=== PATIENT | male | born 1955 | race Caucasian/White ===

== ENCOUNTER → 2024-03-06 10:23 | Outpatient (CLI) | payer OTHER, SELFPAY ==
--- NOTE | 2024-03-06 10:24 | DI.MRI.S_ITS ---
PROCEDURE: MR PELVIC PROSTATE PROTOCOL INDICATIONS: Elevated PSA TECHNIQUE: Coronal HASTE, axial T1 FSE with fat saturation, 3-plane nonbreath-hold T2 FSE. After the administration of contrast, dynamic axial, delayed axial and coronal VIBE or 2-D FLASH with fat saturation through the pelvis. Diffusion weighted imaging and ADC was performed. COMPARISON: None. FINDINGS: Image quality: Diffusion weighted and dynamic contrast enhanced images are diagnostic. Prostate: Gland size is 3.8 x 5.5 x 4.6 cm; ellipsoid gland volume is 50 mL. Nodular hypertrophy of the majority of the transition zone with some preservation of peripheral zone in the mid gland apex. A small wedge-shaped focus of restricted diffusion in the left posterior transition zone of near the base has morphology suggesting postinflammatory change. This could also represent portion of a BPH nodule. This is seen best on series 24, image 53. PI-RADS two. there are several circumscribed transition zone nodules which demonstrate restricted diffusion and enhancement, most likely false positive Lesion 1: Location: Right paracentral posterior peripheral zone at the mid gland level is a curvilinear area of low ADC signal, series 25, image 12 and series 7, image 11. Size: 0.8 cm. T2W signal: Mildly hypointense DWI signal: Mildly hyperintense ADC signal: Moderately hypointense Enhancement: No Extracapsular extension: No PI-RADS score: Three Genitourinary system: Bladder wall thickness is normal. Distal ureters are non distended. Small bilateral hydroceles. Bowel and peritoneum: No pathologic free pelvic fluid. Inferior colon and small bowel loops are normal in caliber. Extensive sigmoid diverticulosis. Nodes and vessels: No pelvic or inguinal adenopathy by size criteria. Iliac vessels are normal in caliber. Soft tissues: No inguinal hernias. Bones: Marrow demonstrates normal overall signal, without lesions to suggest metastases. IMPRESSION: Mildly enlarged prostate with morphology of BPH. PI-RADS three curvilinear lesion in the right posterior peripheral zone. No PI-RADS four or PI-RADS five lesions. No pelvic lymphadenopathy by size criteria. No aggressive osseous abnormality. Dictated by: Balbina Garland M.D. on 03/06/2024 at 15:13 Approved by: Balbina Garland M.D. on 03/06/2024 at 15:58
== END ==
PROVIDERS: PCP Student in an Organized Health Care Education/Training Program; Referring Provider Urology; Visit Provider Urology
DX: N40.0 Benign prostatic hyperplasia without lower urinary tract symptoms (principal); R97.20 Elevated prostate specific antigen [PSA]; N42.9 Disorder of prostate, unspecified
CPT/HCPCS: 72197; A9579

== ENCOUNTER → 2024-04-22 10:18 | Outpatient (CLI) | payer OTHER, SELFPAY ==
--- NOTE | 2024-04-22 10:19 | DI.MRI.S_ITS ---
PROCEDURE: MR SHOULDER LT WO CON INDICATIONS: ARTHROPATHIES LT SHOULDER TECHNIQUE: Noncontrast oblique coronal T2 fast spin echo with fat saturation, oblique sagittal T1 spin echo and T2 fast spin echo with fat saturation, axial T1 spin echo and T2 fast spin echo with fat saturation through the shoulder. COMPARISON: None. FINDINGS: Image quality: Excellent. Rotator cuff: There is full-thickness rupture involving mid to posterior fibers of distal supraspinatus and distal infraspinatus at their insertions on the humeral head with up to 4.1 cm medial retraction of torn tendon fibers to the level of acromion. Low-grade intrasubstance partial-thickness tear involving distal subscapularis is seen. Sagittal images demonstrate moderate supraspinatus muscle atrophy. Bones and bursae: Superior migration of humeral head in relation to glenoid is noted. Large amount of subacromial subdeltoid bursal fluid, no definite intra-articular loose body is seen. 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 Type 2 acromion, no os acromiale. Capsule and soft tissues: The labrum is grossly intact. Moderate to high-grade partial-thickness tear involving proximal long head of biceps tendon at the level of greater tuberosity is seen with up to 2.3 cm distal retraction of torn tendon fibers. IMPRESSION: 1. Full-thickness rupture involving mid to posterior fibers of distal supraspinatus and distal infraspinatus at their insertions on humeral head with up to 4.1 cm medial retraction of torn tendon fibers to the level of acromion. Low-grade intrasubstance partial-thickness tear involving distal subscapularis. Moderate supraspinatus muscle atrophy. 2. Superior migration of humeral head in relation to glenoid. Moderate acromioclavicular joint osteoarthritis. No acute fracture or dislocation. Large amount of subacromial subdeltoid bursal fluid, no definite intra-articular loose bodies. 3. No gross focal glenoid labral tear. 4. Moderate to high-grade partial-thickness tear involving proximal long head of biceps tendon at the level of greater tuberosity as described above. Dictated by: Amadou Mclain M.D. on 04/22/2024 at 14:28 Approved by: Amadou Mclain M.D. on 04/22/2024 at 15:00
== END ==
PROVIDERS: PCP Student in an Organized Health Care Education/Training Program; Referring Provider Orthopaedic Surgery; Visit Provider Orthopaedic Surgery
DX: M75.121 Complete rotator cuff tear or rupture of right shoulder, not specified as traumatic (principal); S46.112A Strain of muscle, fascia and tendon of long head of biceps, left arm, initial encounter; M19.012 Primary osteoarthritis, left shoulder
CPT/HCPCS: 73221